=== PATIENT | male | born 1980 | race Caucasian/White ===

== ENCOUNTER 2018-07-10 12:45 | Emergency (ER) | payer OTHER ==
[~2018-07-10] VITALS: Ht 182.9 cm; Wt 97.5 kg
[2018-07-10] MEDS ORDERED: IBUP800 PO (13:19)
== END 2018-07-10 13:25 | disposition home or self-care (01) ==
LOC: EDBD 12:45 → ER 12:45
DX: M79.81 Nontraumatic hematoma of soft tissue (principal); F17.200 Nicotine dependence, unspecified, uncomplicated
CPT/HCPCS: 73130; 99283-25